=== PATIENT | male | born 1975 | race Caucasian/White ===

== ENCOUNTER 2024-08-19 22:12 | Emergency (ER) | payer BC, SELFPAY ==
[2024-08-19 22:16] VITALS: BP 103/72
--- NOTE | 2024-08-20 00:40 | ED.GENMED ---
History of Present Illness
General
Chief Complaint: Cough
Time Seen by Provider: 08/20/24 00:40
History of Present Illness
History of Present Illness:
TIME OF INITIAL ENCOUNTER: 12:40 AM
HPI:
The patient had a viral syndrome a few weeks ago and has been having intermittent coughing. Earlier in the day, he had a severe coughing fit which was extraordinarily painful and felt a 'pop' as he points to the mid axillary line of the right side
of the chest. The pain was so severe that he nearly passed out. He tried an Percocet which did not help much. He came in here for further evaluation. Pain worsens with coughing and certain movements.
EXAM:
GENERAL: Well appearing in no distress
HEENT: Moist oral mucosa
CARDIOVASCULAR: No murmurs, normal heart rate, regular rhythm, focal area of severe chest wall tenderness along the right mid axillary line of the chest, decreased active range of motion due to pain
PULMONARY: No respiratory distress, breath sounds are clear and equal
ABDOMEN: Soft with no peritoneal signs, no tenderness
NEUROLOGIC: Excellent strength all extremities, no coordination deficits
PSYCHIATRIC: Appropriate mental status, normal insight and judgement
EXTREMITIES: Nontender, no edema, moves all extremities equally
SKIN: No rash, no lesions
NUMBER AND COMPLEXITY OF PROBLEMS ADDRESSED AT THE ENCOUNTER
� Chronic conditions affecting care: Polyneuropathy, GERD, IBD, anxiety
� Acute Exacerbation and/or Progression of Chronic Illness: This is an acute problem
� Differential Diagnosis includes: Chest wall strain, muscle tear, pneumothorax, rib fracture
AMOUNT AND/OR COMPLEXITY OF DATA TO BE REVIEWED AND ANALYZED
� I performed an independent evaluation of and my interpretation is:
EKG:
CT:
X-rays: I personally reviewed chest x-ray and agree with radiologist interpretation that there is no pneumothorax
Laboratory Studies:
Other:
� Review of other/old records: I reviewed records, the patient went to the OR with Dr. Denis in 2020
� Clinical information was obtained by an independent historian: I spoke to his at bedside who is a shank carrier here
� Prescriptions/Medications Considered but not given: Offered and considered Toradol however prefers against this given his other medications and history of Crohn's
� Further testing considered but not performed:
RISK OF COMPLICATIONS AND/OR MORBIDITY OR MORTALITY OF PATIENT MANAGEMENT
� Social determinants of health affecting care: Lives at home
� Discussion with other providers:
� Escalation of care including admission/observation vs risk of discharge considered: The patient has already tried Percocet without much relief. We gave 2 pills of Percocet as he at times has rather debilitating calf pain.
After informed consent (including risk of pneumothorax), I did perform a trigger point injection to the affected area.
ANY OTHER UPDATES:
Past History
Past History
ED Past Medical History: None; Negative Asthma, HTN, Hypercholesterolemia or NIDDM
ED Past Surgical History: Other (right inguinal hernia repair)
Social History
Tobacco: Non-smoker
Alcohol: None
Personal: Single
Living: with family
Phy Exam
Physical Exam
Physical Exam:
See HPI
Course
Orders/Labs/Results
Orders:
Orders
08/19/24 22:18
CR Ribs-megan 4 Vw W/pa Chest Urgent
Comment:
Reason For Exam: cough with 'pop'/ increasing pain
08/20/24 00:57
Oxycodone/Acetaminophen [Percocet 5/325] 2 tablet PO NOW STA
Vital Signs
Initial and Last Documented VS:
Initial Vital Signs
Temp Pulse Resp BP Pulse Ox
98.3 F 63 18 103/72 95
08/19/24 22:16 08/19/24 22:16 08/19/24 22:16 08/19/24 22:16 08/19/24 22:16
Last Documented Vital Signs
Temp Pulse Resp BP Pulse Ox
98.3 F 63 18 103/72 95
08/19/24 22:16 08/19/24 22:16 08/19/24 22:16 08/19/24 22:16 08/19/24 22:16
Procedures
Other
Indication for procedure:: Trigger point injection-chest wall pain
Procedure completed by: Ma, Dr. Chacko
Consent form signed: No
Additional Procedure:
Verbal informed consent obtained�went over the risk including very slim risk of pneumothorax (I told patient that I would only inject superficially underneath the skin) which was performed with a one-to-one ratio of Marcaine and lidocaine
approximately 2 mL external to the level of the rib
*Critical Care Note
Total Time (30-74mins, 75-104mins- exclusive of procedures): Not Applicable
ED Attending Note
-
Portions of this chart may have been created with voice recognition software.� Occasional wrong word or��sound alike� substitutions may have occurred due to the inherent limitations of voice recognition software.
Discharge Plan
Departure
Patient Disposition: Home (Routine Discharge)
Date of Disposition: 08/20/24
Time of Disposition: 01:10
Patient with high blood pressure during this ER visit?: Yes
Discharge Problem:
Acute chest wall pain
Prescriptions:
New
oxycodone-acetaminophen [Percocet] 5-325 mg tablet
1 - 2 tab PO Q6HPRN PRN (Reason: pain) Qty: 14 0RF
No Action
ketotifen fumarate [Zaditor] 1 DROP drops
1 drp BOTH EYES BID
fexofenadine [Rebecca] 180 MG tablet
180 mg PO DAILY
omeprazole 40 MG capsule,delayed release(DR/EC)
40 mg PO DAILY
montelukast 10 MG tablet
10 mg PO DAILY
fluticasone propionate 1 SPRAY spray,suspension
2 spray intranasal DAILY
escitalopram oxalate 10 MG tablet
10 mg PO DAILY
Patient Comments:
04/15/2021: Takes w/ 20mg = 30mg
escitalopram oxalate 20 MG tablet
20 mg PO DAILY
Patient Comments:
04/15/2021: Takes w/ 10mg = 30mg
pregabalin [Lyrica] 150 MG capsule
150 mg PO BID
Patient Comments:
04/15/2021: last filled 11/05/20, 270 tabs for 90 days from [facility]
mesalamine [Lialda] 1.2 GM tablet,delayed release (DR/EC)
4.8 g PO DAILY
Ivig
1 dose IV . DIRECTED
Patient Comments:
04/15/2021: pt recieves 2 days [id number]
sennosides [senna] 1 TABLET tablet
2 tab PO BID 0RF
polyethylene glycol 3350 17 GRAMS powder in packet
17 grams PO DAILY 0RF
phenazopyridine 200 MG tablet
200 mg PO TIDPRN PRN (Reason: urinary irritatoin) Qty: 30 0RF
sulfamethoxazole-trimethoprim 1 TABLET tablet
1 tab PO BID Qty: 26 0RF
docusate sodium 100 MG capsule
100 mg PO BID 0RF
amoxicillin-pot clavulanate 1 TABLET tablet
1 tab PO Q12 Qty: 26 0RF
infliximab [Remicade] 100 MG/10 ML recon soln
100 mg IV Q6W Qty: 0 0RF
Rx Instructions:
Do not restart until 05/01/21
Activity Restrictions/Additional Instructions:
Chest x-ray shows no sign of pneumothorax, rib fracture, pneumonia, or other injury to the lung. I did perform a very superficial trigger point injection with lidocaine and Marcaine. I sent a prescription for Percocet to your pharmacy. If you
take Percocet I do recommend taking some the like MiraLAX to help prevent constipation.
Interventions
Interventions:
*General Assessment Last Done: 08/19/24 22:16
Discharge Date and Time
Print Language: SAO TOMEAN
[2024-08-20 01:15] VITALS: BMI 27.8
[2024-08-20] MEDS: PERCOCET 5/325 2 TABLET PO (01:19)
== END 2024-08-20 01:25 | disposition home or self-care (01) ==
LOC: EMR 22:12
PROVIDERS: EMERGENCY PHYSICIAN Emergency Medicine; FAMILY PHYSICIAN Chiropractor
DX: R07.89 Other chest pain (principal)
CPT/HCPCS: 99283; 71111